=== PATIENT | female | born 1955 | race Caucasian/White ===

== ENCOUNTER 2019-11-22 15:17 | Inpatient (IN) | payer OTHER ==
[~2019-11-22] VITALS: Ht 168.9 cm; Wt 73.5 kg
[2019-11-22 15:24] VITALS: BP 132/76
[2019-11-22 17:16] LABS: HEMOGLOBIN 14.9 g/dl (12.0-16.0); MEAN CELL VOLUME 102.4 fl (81.0-99.0); MEAN CORPUSCULAR HGB 33.2 pg (27.0-31.0); MEAN CORPUSCULAR HGB CONC 32.4 g/dl (33.0-37.0); MEAN PLATELET VOLUME 9.3 fl (9.6-12.3); PLATELET COUNT AUTOMATED 265 10*3/uL (130-400); RED BLOOD COUNT 4.49 10*6/uL (4.10-5.10); RED CELL DISTRI WIDTH 13.7 % (0-14.5); WHITE BLOOD COUNT 16.6 10*3/uL (4.8-10.8)
[2019-11-22 17:21] VITALS: BP 131/84
[2019-11-22 17:36] LABS: BASOPHILS 1 % (0-1); PLATELET SUFFICIENCY NORMAL (NORMAL); TOTAL CELLS COUNTED 100 #CELLS
[2019-11-22 17:37] LABS: ACT PARTIAL THROMBO TIME 28.9 SECONDS (20.0-32.1); BURR CELLS FEW; INTERNATIONAL NORM RATIO 0.9 (2.0-3.5)
[2019-11-22 17:43] LABS: ALBUMIN 3.4 gm/dl (3.1-4.5); ALKALINE PHOSPHATASE 119 U/L (45-117); BUN 11 mg/dl (7-24); CHLORIDE 108 mmol/L (98-107); CREATININE 0.66 mg/dL (0.55-1.02); POTASSIUM 3.5 mmol/L (3.5-5.1); SGOT/AST 18 IU/L (3-35); SGPT/ALT 24 U/L (12-78); SODIUM 141 mmol/L (136-145)
[2019-11-22 17:55] VITALS: BP 136/76
[2019-11-22 17:55] LABS: BILIRUBIN NEGATIVE (NEGATIVE); BLOOD NEGATIVE (NEGATIVE); CLARITY SL CLOUDY (CLEAR); COLOR YELLOW (YELLOW); GLUCOSE NEGATIVE (NEGATIVE); KETONE 1+ (NEGATIVE); LEUKO ESTERASE 2+ (NEGATIVE); NITRITE NEGATIVE (NEGATIVE); PH 6.5 (5.0-9.0)
[2019-11-22 18:09] LABS: BACTERIA TRACE; CALCIUM OXALATE CRYSTALS TR; WBC 31-40 wbc/hpf (0-5)
[2019-11-22 21:20] VITALS: BP 129/80
--- NOTE | 2019-11-22 21:20 | NUR ---
A 64, admitted to , under the services of LUIS ANTONIO Diggs DO with a diagnosis of UTI CELLULITIS. Chief complaint is PAIN TO LOWER ABDOMEN, LUMP THAT IS RED AND SWOLLEN Patient arrived via stretcher from ER. Monitor applied, MONITOR PACK #[id number]. Initial assessment completed. Vital signs taken and recorded. LUIS ANTONIO DIGGS DO notified of admission to the unit. Orders received. See assessment for past medical history, medications and allergies. Patient and/or family oriented to unit. [address] visitation policy reviewed. Clothing/patient valuable form completed. INITAL ASSESSMENT COMPLETED. LUNGS CLEAR. BSX4 PRESENT. DENIES WEAKNESS. IV IN RAC. NO OPEN AREAS. RED, SWOLLEN, PAINFUL LUMP LOCATED ON PT'S LOWER ABDOMEN. PT IS LOW FALL RISK AND ALERT AND ORIENTED.ROOM ORIENTATION WAS PROVIDED. WELL THE PLAN OF CARE LISA MENG
[2019-11-22] MEDS ORDERED: ASPIRIN CHEWABL81 MG PO (23:28)
[2019-11-23] VITALS (9 sets, daily range): BP systolic 105–141; BP diastolic 54–94
--- NOTE | 2019-11-23 03:51 | NUR ---
24 HR chart check completed.
--- NOTE | 2019-11-23 07:27 | NUR ---
JOHN POZO [id number] Please refer to the physician's history and physical for past medical history, comorbid conditions, and allergies. Diagnosis: UTI CELLULITIS Alo Score: 22,LOW OR NO RISK WOUND DESCRIPTIONS: Wound Number: 1 Location of the wound: SUPRAPUBIC Thickness: Partial Size: 0.3CM X 0.3CM X <0.1CM Tunneling: NONE Undermining: NONE Sinus Tract: NONE Presence of Exudate: NONE Amount: None Color: Black Odor: None Periwound Skin Appearance: Erythema 24.0CM X 8.0CM X <0.1CM FIRMNESS 4.5CM X 8.0CM X <0.1CM Wound edges: CLOSED Pain (associated with wound): TENDER TO TOUCH PATIENT STATES THE PAIN HAS DECREASED SINCE SHE HASN'T BEEN WEARING PANTS How does patient state this happened? PT STATES THE REDNESS STARTED WEDNESDAY Surface the patient is resting on: Isoflex SKIN PREVENTION RECOMMENDATION: 1. Pressure redistribution support surface as appropriate 2. Elevate heels 3. Remove boots/TEDS every shift and reapply 4. Head of bed 30 degrees as tolerated 5. Assess nutrition and hydration 6. Manage moisture 7. Avoid the use of containment devices while in bed 8. Use absorptive products on surfaces limit layers of linens on bed 9. Turn and reposition every 1-2 hours in bed and every 1 hour in chair as tolerated 10. Weight shifts every 15 minutes while up in chair 11. Offloading with pillows or device to keep heels elevated off bed 12. Monitor skin at least every shift 13. Inspect under medical devices twice a day WOUND TREATMENT RECOMMENDATIONS: WARM COMPRESS QID TO SUPRAPUBIC AREA. CONSULT DR. SPRAGUE FOR POSSIBLE I&D.
[2019-11-23 07:42] LABS: BASO # 0.1 10*3/uL (0.0-0.1); BASO % 0.4 % (0.0-1.0); EOS # 0.1 10*3/uL (0.0-0.4); EOS % 0.4 % (1.0-4.0); HEMATOCRIT 42.5 % (37.0-47.0); HEMOGLOBIN 13.9 g/dl (12.0-16.0); LYMPH # 4.6 10*3/uL (1.3-4.4); LYMPH % 33.7 % (27.0-41.0); MEAN CELL VOLUME 102.4 fl (81.0-99.0); MEAN CORPUSCULAR HGB 33.5 pg (27.0-31.0); MEAN CORPUSCULAR HGB CONC 32.7 g/dl (33.0-37.0); MEAN PLATELET VOLUME 9.1 fl (9.6-12.3); MONO # 1.3 10*3/uL (0.1-1.0); MONO % 9.2 % (3.0-9.0); NEUT # 7.6 10*3/uL (2.3-7.9); PLATELET COUNT AUTOMATED 242 10*3/uL (130-400); RED BLOOD COUNT 4.15 10*6/uL (4.10-5.10); RED CELL DISTRI WIDTH 13.8 % (0-14.5); WHITE BLOOD COUNT 13.7 10*3/uL (4.8-10.8)
[2019-11-23 08:06] LABS: CHLORIDE 111 mmol/L (98-107); POTASSIUM 3.8 mmol/L (3.5-5.1); SODIUM 143 mmol/L (136-145)
[2019-11-23 08:13] LABS: ALBUMIN 2.8 gm/dl (3.1-4.5); ALKALINE PHOSPHATASE 98 U/L (45-117); BUN 9 mg/dl (7-24); CHOLESTEROL 112 mg/dL (<200); CREATININE 0.73 mg/dL (0.55-1.02); FREE T4 1.08 ng/dl (0.76-1.46); HDL CHOLESTEROL 33 mg/dl (40-60); LDL CHOLESTEROL 63 mg/dL (9-159); PHOSPHOROUS 3.1 mg/dL (2.5-4.9); SGOT/AST 15 IU/L (3-35); SGPT/ALT 23 U/L (12-78); TOTAL PROTEIN 5.2 gm/dL (6.4-8.2); TRIGLYCERIDES 80 mg/dl (<150); VLDL CHOLESTEROL 16 mg/dL (6-40)
--- NOTE | 2019-11-23 08:43 | NUR ---
DR. SPRAGUE AWARE OF CONSULT, NOTIFIED THAT PATIENT HAS ALREADY HAD BREAKFAST.
--- NOTE | 2019-11-23 09:00 | NUR ---
Rn Urology in to talk to patient. Patient states lives at home with alone. There are few steps in the home. Physician: [facility] Pharmacy: [facility] Home health services: none Patient's level of ADLs: INDEPENDENT Patient has working utilities: all working DME: none Follow-up physician's appointment after d/c: will be made by hospitalist nurse director upon discharge Does patient want to access PORTAL?: no Discharge plan discussed with patient she states she lives at home alone, she is independent in adls and ambulation, drives, works two emergency department rn jobs, she states she will return to home when medically stable and denies any home needs, case management will follow. CELSO CABRALES
--- NOTE | 2019-11-23 09:07 | NUR ---
Dr. Pepe notified of wound care recommendations.
--- NOTE | 2019-11-23 09:07 | NUR ---
Spoke with Dr. Corbett regarding patient's skin impairment. He stated he will see her later on today to see if patient requires intervention.
--- NOTE | 2019-11-23 11:58 | NUR ---
SENT TO SURGERY VIA BED
--- NOTE | 2019-11-23 12:40 | NUR ---
RETURN FROM SURGERY
--- NOTE | 2019-11-23 20:39 | NUR ---
24 HR chart check completed.
[2019-11-24] VITALS: BP 114/75
[2019-11-24 06:11] LABS: BASO # 0.1 10*3/uL (0.0-0.1); BASO % 0.7 % (0.0-1.0); EOS # 0.1 10*3/uL (0.0-0.4); EOS % 1.1 % (1.0-4.0); HEMATOCRIT 43.2 % (37.0-47.0); LYMPH # 4.4 10*3/uL (1.3-4.4); LYMPH % 41.2 % (27.0-41.0); MEAN CELL VOLUME 99.5 fl (81.0-99.0); MEAN CORPUSCULAR HGB 32.3 pg (27.0-31.0); MEAN CORPUSCULAR HGB CONC 32.4 g/dl (33.0-37.0); MEAN PLATELET VOLUME 9.7 fl (9.6-12.3); MONO # 1.5 10*3/uL (0.1-1.0); MONO % 13.8 % (3.0-9.0); NEUT # 4.6 10*3/uL (2.3-7.9); PLATELET COUNT AUTOMATED 268 10*3/uL (130-400); RED BLOOD COUNT 4.34 10*6/uL (4.10-5.10); RED CELL DISTRI WIDTH 13.5 % (0-14.5); WHITE BLOOD COUNT 10.6 10*3/uL (4.8-10.8)
--- NOTE | 2019-11-24 06:23 | NUR ---
CALLED [facility] AND NOTIFIED THEM OF PT'S VANC TROUGH OF 7.7. PER PHARMACIST, IT IS OKAY TO HANG THE 1gm DOSE AT THIS TIME AND SHE WILL LEAVE A NOTE FOR [facility] TO TAKE A LOOK AND SEE IF THEY WOULD LIKE TO ADJUST DOSE.
--- NOTE | 2019-11-24 07:10 | NUR ---
Shift chart check completed.
[2019-11-24 08:00] VITALS: BP 102/59; BP 110/60
--- NOTE | 2019-11-24 08:22 | NUR ---
Follow up with Mary Kate NUR in wound care clinic on 11/28/19 @ 3:00pm, call [phone] with any concerns
--- NOTE | 2019-11-24 09:00 | NUR ---
case management visits with patient she states she is a possibly discharge today after the surgeon visits, discussed with her VNA and she declines, stated she was able to change her dressing herself and if not she had family to help her.
--- NOTE | 2019-11-24 09:27 | NUR ---
Nutritional Support Services Note: Appetite is good for meals. Regular diet as ordered. Cellulitis noted. Ht.5'6 Wt.162#. IBW 130#, No other nutrition intervention needed at this time. Continued to encourage good intake of meals. Will follow if needed. Jyotsna Bryan Rdn Ld
[2019-11-24 12:00] VITALS: BP 110/69
[2019-11-24] MEDS ORDERED: CEPHALEXIN500 M1 PO (12:12)
--- NOTE | 2019-11-24 13:12 | NUR ---
Hep Lock discontinued. Site asymptomatic. Pressure applied. Sterile dressing applied. Discharge instructions reviewed with patient/family. Patient receptive and verbalizes understanding. Follow-up care arranged. Written instructions given to patient/family. ZENIA DODGE
--- NOTE | 2019-11-24 13:25 | NUR ---
PATIENT AMBULATED OUT WIOTH BELONGINGS.
== END 2019-11-24 13:21 | disposition home or self-care (01) | DRG 710 ==
LOC: ED 15:17 → 4E 19:59 → EDHOLD 19:59 → 4E 20:37
PROVIDERS: Internal Medicine; Physician Assistant; Student in an Organized Health Care Education/Training Program; ADMIT Internal Medicine
PROC: 0Y960ZZ Drainage of Left Inguinal Region, Open Approach (ICD-10-PCS; principal; 2019-11-23)
DX: A41.9 Sepsis, unspecified organism (principal); E66.3 Overweight; L03.314 Cellulitis of groin; R00.1 Bradycardia, unspecified; L02.214 Cutaneous abscess of groin; E87.8 Other disorders of electrolyte and fluid balance, not elsewhere classified; B96.89 Other specified bacterial agents as the cause of diseases classified elsewhere; R74.8 Abnormal levels of other serum enzymes; D75.89 Other specified diseases of blood and blood-forming organs; Z82.0 Family history of epilepsy and other diseases of the nervous system; Z79.82 Long term (current) use of aspirin; Z68.25 Body mass index [BMI] 25.0-25.9, adult

== ENCOUNTER 2021-11-13 10:17 | Emergency (ER) | payer OTHER, MEDICARE ==
[~2021-11-13 10:17] MED LIST: ASPIRIN CHEWABL81 MG PO; CEPHALEXIN500 M1 PO
[2021-11-13 11:03] LABS: BASO # 0.1 10*3/uL (0.0-0.1); BASO % 0.4 % (0.0-1.0); EOS # 0.1 10*3/uL (0.0-0.4); EOS % 0.4 % (1.0-4.0); HEMATOCRIT 42.4 % (37.0-47.0); LYMPH # 2.9 10*3/uL (1.3-4.4); LYMPH % 15.7 % (27.0-41.0); MEAN CELL VOLUME 95.5 fl (81.0-99.0); MEAN CORPUSCULAR HGB 31.5 pg (27.0-31.0); MEAN PLATELET VOLUME 8.9 fl (9.6-12.3); MONO # 0.8 10*3/uL (0.1-1.0); MONO % 4.4 % (3.0-9.0); NEUT # 14.3 10*3/uL (2.3-7.9); NEUT % 78.6 % (47.0-73.0); PLATELET COUNT AUTOMATED 462 10*3/uL (130-400); RED BLOOD COUNT 4.44 10*6/uL (4.10-5.10); RED CELL DISTRI WIDTH 14.3 % (0-14.5); WHITE BLOOD COUNT 18.2 10*3/uL (4.8-10.8)
[2021-11-13 11:20] LABS: ALBUMIN 2.4 gm/dl (3.1-4.5); ALKALINE PHOSPHATASE 199 U/L (45-117); BUN 9 mg/dl (7-24); CHLORIDE 110 mmol/L (98-107); CREATININE 0.48 mg/dL (0.55-1.02); SGOT/AST 17 IU/L (3-35); SGPT/ALT 34 U/L (12-78); SODIUM 140 mmol/L (136-145); TOTAL PROTEIN 5.4 gm/dL (6.4-8.2)
[2021-11-13] MEDS ORDERED: ZOFRAN4 MG PO (12:41)
[2021-11-13] MEDS ORDERED: LEVOFLOXACIN750 M2 PO (12:41)
== END 2021-11-13 13:19 | disposition home or self-care (01) ==
LOC: ED 10:17
PROVIDERS: Student in an Organized Health Care Education/Training Program
DX: J18.9 Pneumonia, unspecified organism (principal); Z20.822 Contact with and (suspected) exposure to COVID-19; Z79.82 Long term (current) use of aspirin

== ENCOUNTER 2022-12-15 07:30 | Emergency (ER) | payer OTHER, MEDICARE ==
[~2022-12-15] VITALS: Ht 167.6 cm; Wt 59.0 kg
[~2022-12-15 07:30] MED LIST changes: +LEVOFLOXACIN750 M2 PO; +ZOFRAN4 MG PO
[2022-12-15 08:55] LABS: HEMATOCRIT 46.1 % (37.0-47.0); MEAN CORPUSCULAR HGB 31.5 pg (27.0-31.0); MEAN CORPUSCULAR HGB CONC 32.8 g/dl (33.0-37.0); PLATELET COUNT AUTOMATED 312 10*3/uL (130-400); RED CELL DISTRI WIDTH 13.9 % (0-14.5); WHITE BLOOD COUNT 29.6 10*3/uL (4.8-10.8)
[2022-12-15 08:56] LABS: MANUAL DIFF REFLEX YES
[2022-12-15 09:07] LABS: ACT PARTIAL THROMBO TIME 30.6 SECONDS (20.0-32.1)
[2022-12-15 09:14] LABS: ALKALINE PHOSPHATASE 132 U/L (46-116); BUN 11 mg/dl (9-23); CHLORIDE 101 mmol/L (98-107); POTASSIUM 3.9 mmol/L (3.4-5.1); SGPT/ALT 25 U/L (10-49)
[2022-12-15 09:19] LABS: TOTAL CELLS COUNTED 100 #CELLS
[2022-12-15 09:20] LABS: PLATELET SUFFICIENCY NORMAL (NORMAL); POLYCHROMASIA SLIGHT; TARGET CELLS FEW
[2022-12-15 10:53] LABS: BILIRUBIN Negative (Negative); BLOOD Negative (Negative); CLARITY Clear (Clear); COLOR Yellow (Yellow); GLUCOSE Negative (Negative); KETONE Negative (Negative); LEUKO ESTERASE Trace (Negative); NITRITE Negative (Negative); PH 6.5 (4.5-8.0); SPECIFIC GRAVITY 1.015 (1.001-1.030)
[2022-12-15 11:17] LABS: MUCOUS 1+
== END 2022-12-15 13:09 | disposition short-term general hospital (02) ==
LOC: ED 07:30
PROVIDERS: Emergency Medicine
DX: S72.002A Fracture of unspecified part of neck of left femur, initial encounter for closed fracture (principal); Z20.822 Contact with and (suspected) exposure to COVID-19; Z79.899 Other long term (current) drug therapy; Z90.710 Acquired absence of both cervix and uterus; W19.XXXA Unspecified fall, initial encounter; Y93.89 Activity, other specified; Y92.009 Unspecified place in unspecified non-institutional (private) residence as the place of occurrence of the external cause; Y99.8 Other external cause status

== ENCOUNTER 2023-12-30 20:35 | Inpatient (IN) | payer MEDICARE ==
[2023-12-30] VITALS (12 sets, daily range): BP systolic 60–85; BP diastolic 31–47
[~2023-12-30] VITALS: Ht 167.6 cm; Wt 66.8 kg
[~2023-12-30 20:35] MED LIST changes: +VANCO 1.251.25 GM/25 IV
[2023-12-30] MEDS ORDERED: SODIUM CHLORIDE 0.9% 1,000 ML IV SCH (20:55)
[2023-12-30] MEDS ORDERED: SODIUM CHLORIDE 0.9% 2,000 ML IV ONE (20:59)
[2023-12-30] MEDS ORDERED: NOREPINEPHRINE BITARTRATE/D5W 250 ML IV SCH (21:55)
[2023-12-30 22:17] LABS: HEMATOCRIT 40.4 % (37.0-47.0); MEAN CELL VOLUME 101.3 fl (81.0-99.0); MEAN CORPUSCULAR HGB 30.3 pg (27.0-31.0); MEAN PLATELET VOLUME 9.8 fl (9.6-12.3); NUCLEATED RED BLOOD CELL 0.1 10*3/uL (0.0-0.0); NUCLEATED RED BLOOD CELL 0.2 % (0.0-0.0); PLATELET COUNT AUTOMATED 72 10*3/uL (130-400); RED BLOOD COUNT 3.99 10*6/uL (4.10-5.10); RED CELL DISTRI WIDTH 16.7 % (0-14.5); WHITE BLOOD COUNT 30.6 10*3/uL (4.8-10.8)
[2023-12-30 22:34] LABS: MANUAL DIFF REFLEX YES
[2023-12-30 22:36] LABS: PLATELET SUFFICIENCY LOW (NORMAL); TOTAL CELLS COUNTED 100 #CELLS
[2023-12-30 22:37] LABS: BURR CELLS MODERATE; OVALOCYTES FEW
[2023-12-30 22:45] LABS: ALKALINE PHOSPHATASE 86 U/L (46-116); BUN 15 mg/dl (9-23); CHLORIDE 118 mmol/L (98-107); LIPASE 42 U/L (12-53); POTASSIUM 2.5 mmol/L (3.4-5.1); SGPT/ALT 15 U/L (5-49)
[2023-12-30] MEDS ORDERED: Piperacillin Sodium/Tazobact 50 ML IV ONE (22:45)
[2023-12-30] MEDS ORDERED: Vancomycin Hydrochloride 250 ML IV ONE (22:45)
[2023-12-30] MEDS ORDERED: MAGNESIUM SULFATE 100 ML IV ONE (23:30)
[2023-12-30 23:34] LABS: ACT PARTIAL THROMBO TIME 40.4 SECONDS (20.0-32.1)
[2023-12-30] MEDS ORDERED: VASOPRESSIN 100 ML IV SCH (23:55)
[2023-12-31] VITALS (84 sets, daily range): BP systolic 67–184; BP diastolic 15–152
[2023-12-31] MEDS ORDERED: POTASSIUM CHLORIDE IN WATER 100 ML IV SCH
[2023-12-31 00:34] LABS: BILIRUBIN Negative (Negative); BLOOD 3+ (Negative); CLARITY Cloudy (Clear); COLOR Dark Yellow (Yellow); GLUCOSE Trace (Negative); KETONE Negative (Negative); LEUKO ESTERASE Negative (Negative); NITRITE Negative (Negative); PH 5.5 (4.5-8.0); UROBILINOGEN 0.2 E.U./dl (0.0-1.0)
[2023-12-31 00:49] LABS: COARSE GRANULAR CAST 21-30; EPITHELIAL CELLS 31-40
[2023-12-31 00:50] LABS: BACTERIA 1+; RBC 21-30 rbc/hpf (0-2)
[2023-12-31] MEDS ORDERED: MORPHINE Sulfate 2 MG/ML SYR IV PRN (01:50)
[2023-12-31] MEDS ORDERED: BISACODYL 5 MG TAB PO PRN (01:50)
[2023-12-31] MEDS ORDERED: Magnesium Hydroxide 30 ML UDC PO PRN (01:50)
[2023-12-31] MEDS ORDERED: ACETAMINOPHEN 325 MG TAB PO PRN (01:50)
[2023-12-31] MEDS ORDERED: Ondansetron Hydrochloride 4 MG/2 ML VIAL IV PRN (01:50)
[2023-12-31] MEDS ORDERED: Acetaminophen/Hydrocodone 5 MG/325 MG TABLET PO PRN (01:50)
[2023-12-31] MEDS ORDERED: TEMAZEPAM 15 MG CAP PO PRN (01:50)
[2023-12-31] MEDS ORDERED: ACETAMINOPHEN 650 MG SUPP R PRN (01:50)
[2023-12-31 02:32] LABS: ABG BASE EXCESS -15.1 mmol/L (-2.0-2.0); ARTERIAL BLOOD GAS PH 7.248 (7.35-7.45)
[2023-12-31] MEDS ORDERED: HEPARIN SODIUM 250 ML IV SCH (02:55)
[2023-12-31] MEDS ORDERED: CALCIUM (TUMS) 500MG PO PRN (03:00)
[2023-12-31] MEDS ORDERED: LEVOFLOXACIN 150 ML IV SCH (03:00)
[2023-12-31] MEDS ORDERED: SODIUM CHLORIDE 0.9% 1,000 ML IV ONE (03:05)
[2023-12-31] MEDS ORDERED: ASPIRIN 325 MG TAB PO ONE (04:55)
[2023-12-31 05:47] LABS: TOTAL PROTEIN 4.6 gm/dL (6.0-8.0)
[2023-12-31 05:53] LABS: POTASSIUM 4.1 mmol/L (3.4-5.1)
[2023-12-31 05:59] LABS: HEMATOCRIT 48.6 % (37.0-47.0); MEAN CORPUSCULAR HGB 30.6 pg (27.0-31.0); MEAN CORPUSCULAR HGB CONC 31.7 g/dl (33.0-37.0); MEAN PLATELET VOLUME 9.7 fl (9.6-12.3); NUCLEATED RED BLOOD CELL 0.1 % (0.0-0.0); PLATELET COUNT AUTOMATED 81 10*3/uL (130-400); RED BLOOD COUNT 5.03 10*6/uL (4.10-5.10)
[2023-12-31] MEDS ORDERED: Piperacillin Sodium/Tazobact 4.5 GM in SODIUM CHLORIDE 0.9% 100 ML IV SCH (06:00)
[2023-12-31 06:47] LABS: WHITE BLOOD COUNT 48.5 10*3/uL (4.8-10.8)
[2023-12-31 06:48] LABS: MANUAL DIFF REFLEX YES; MEAN CELL VOLUME 96.6 fl (81.0-99.0)
[2023-12-31 07:17] LABS: TOTAL CELLS COUNTED 100 #CELLS
[2023-12-31 07:18] LABS: BURR CELLS FEW; ROULEAUX SLIGHT
[2023-12-31 07:19] LABS: PLATELET SUFFICIENCY LOW (NORMAL)
[2023-12-31] MEDS ORDERED: HEPARIN SODIUM 5,000 UNIT/ML VIAL SC SCH (10:00)
[2023-12-31] MEDS ORDERED: ATORVASTATIN CALCIUM 40 MG TABLET PO SCH (10:00)
[2023-12-31] MEDS ORDERED: TAZOBACT IV ONE (10:12)
[2023-12-31] MEDS ORDERED: SODIUM CHLORIDE 0.9% 100 ML BAG IV ONE (10:12)
[2023-12-31] MEDS ORDERED: PIPERACILLIN SODIUM IV ONE (10:12)
[2023-12-31] MEDS ORDERED: Menthol/Zinc Oxide 4 GM THIN T PRN (11:00)
[2023-12-31] MEDS ORDERED: Hydrocortisone Sodium Succin 100 MG IV SCH (12:00)
[2023-12-31] MEDS ORDERED: Hydrocortisone Sodium Succin 100 MG/2 ML VIAL IV SCH (12:00)
[2023-12-31] MEDS ORDERED: Piperacillin Sodium/Tazobact 2.25 GM in SODIUM CHLORIDE 0.9% 50 ML IV SCH (12:00)
[2023-12-31] MEDS ORDERED: Menthol/Zinc Oxide 4 GM THIN T SCH (18:00)
[2023-12-31] MEDS ORDERED: Lactated Ringer's Solution 1,000 ML IV SCH (22:10)
[2024-01-01] VITALS (95 sets, daily range): BP systolic 79–132; BP diastolic 35–90
[2024-01-01] MEDS ORDERED: VANCOMYCIN/WATER FOR INJ (PEG) 150 ML IV SCH (06:00)
[2024-01-01 06:09] LABS: HEMATOCRIT 41.8 % (37.0-47.0); MEAN CORPUSCULAR HGB 30.8 pg (27.0-31.0); MEAN CORPUSCULAR HGB CONC 33.5 g/dl (33.0-37.0); MEAN PLATELET VOLUME 12.1 fl (9.6-12.3); NUCLEATED RED BLOOD CELL 0.1 % (0.0-0.0); NUCLEATED RED BLOOD CELL 0.1 10*3/uL (0.0-0.0); RED BLOOD COUNT 4.55 10*6/uL (4.10-5.10); RED CELL DISTRI WIDTH 16.8 % (0-14.5)
[2024-01-01 06:26] LABS: MEAN CELL VOLUME 91.9 fl (81.0-99.0)
[2024-01-01 06:42] LABS: MANUAL DIFF REFLEX YES
[2024-01-01 06:44] LABS: TOTAL CELLS COUNTED 100 #CELLS
[2024-01-01 06:45] LABS: BURR CELLS MANY
[2024-01-01 06:46] LABS: TOXIC GRANULATION SLIGHT; VACUOLATION OF NEUTROPHILS SLIGHT
[2024-01-01 06:47] LABS: PLATELET SUFFICIENCY LOW (NORMAL)
[2024-01-01 06:51] LABS: PLATELET COUNT AUTOMATED 26 10*3/uL (130-400); WHITE BLOOD COUNT 66.8 10*3/uL (4.8-10.8)
[2024-01-01 06:52] LABS: POTASSIUM 4.8 mmol/L (3.4-5.1); TOTAL PROTEIN 4.1 gm/dL (6.0-8.0)
[2024-01-01 07:34] LABS: MEAN CELL VOLUME 92.5 fl (81.0-99.0); MEAN CORPUSCULAR HGB 30.8 pg (27.0-31.0); MEAN CORPUSCULAR HGB CONC 33.3 g/dl (33.0-37.0); NUCLEATED RED BLOOD CELL 0.1 % (0.0-0.0); NUCLEATED RED BLOOD CELL 0.1 10*3/uL (0.0-0.0); RED BLOOD COUNT 4.65 10*6/uL (4.10-5.10)
[2024-01-01 07:40] LABS: MANUAL DIFF REFLEX YES; WHITE BLOOD COUNT 69.6 10*3/uL (4.8-10.8)
[2024-01-01 07:52] LABS: TOTAL PROTEIN 4.3 gm/dL (6.0-8.0)
[2024-01-01 08:18] LABS: PLATELET SUFFICIENCY LOW (NORMAL); TOTAL CELLS COUNTED 100 #CELLS
[2024-01-01 08:19] LABS: BURR CELLS MANY; PLATELET COUNT AUTOMATED 24 10*3/uL (130-400); POLYCHROMASIA SLIGHT; TOXIC GRANULATION SLIGHT; VACUOLATION OF NEUTROPHILS MODERATE
[2024-01-01] MEDS ORDERED: ASPIRIN ENTERIC COATED 81 MG TAB PO SCH (10:00)
[2024-01-01] MEDS ORDERED: SODIUM CHLORIDE 0.9% 1,000 ML IV SCH (10:35)
[2024-01-01] MEDS ORDERED: VANCOMYCIN HCL 125 MG CAPSULE PO SCH (12:00)
[2024-01-01] MEDS ORDERED: Piperacillin Sodium/Tazobact 2.25 GM in SODIUM CHLORIDE 0.9% 50 ML IV SCH (14:00)
[2024-01-01] MEDS ORDERED: Meropenem 1 GM in SODIUM CHLORIDE 0.9% 100 ML IV SCH (14:00)
[2024-01-01] MEDS ORDERED: Pantoprazole Sodium 40 MG VIAL IV SCH (16:35)
[2024-01-01] MEDS ORDERED: Amiodarone Hydrochloride 900 MG in DEXTROSE 5% 500 ML IV SCH (17:20)
[2024-01-01] MEDS ORDERED: Amiodarone Hydrochloride 150 MG in DEXTROSE 5% 100 ML IV ONE (17:20)
[2024-01-01] MEDS ORDERED: Doxycycline Hyclate 100 MG in SODIUM CHLORIDE 0.9% 250 ML IV SCH (22:00)
[2024-01-02] VITALS (49 sets, daily range): BP systolic 82–126; BP diastolic 37–91
[2024-01-02] MEDS ORDERED: LEVOFLOXACIN 150 ML IV SCH (03:00)
[2024-01-02 05:42] LABS: POTASSIUM 4.2 mmol/L (3.4-5.1); TOTAL PROTEIN 3.9 gm/dL (6.0-8.0)
[2024-01-02 06:22] LABS: HEMATOCRIT 39.5 % (37.0-47.0); MEAN CELL VOLUME 91.9 fl (81.0-99.0); MEAN CORPUSCULAR HGB 30.2 pg (27.0-31.0); MEAN CORPUSCULAR HGB CONC 32.9 g/dl (33.0-37.0); NUCLEATED RED BLOOD CELL 0.3 10*3/uL (0.0-0.0); NUCLEATED RED BLOOD CELL 0.5 % (0.0-0.0); RED CELL DISTRI WIDTH 16.7 % (0-14.5)
[2024-01-02 06:43] LABS: MANUAL DIFF REFLEX YES; PLATELET COUNT AUTOMATED 10 10*3/uL (130-400); WHITE BLOOD COUNT 74.5 10*3/uL (4.8-10.8)
[2024-01-02 06:55] LABS: TOTAL CELLS COUNTED 100 #CELLS
[2024-01-02 06:56] LABS: PLATELET SUFFICIENCY LOW (NORMAL); TOXIC GRANULATION SLIGHT; VACUOLATION OF NEUTROPHILS MODERATE
[2024-01-02 06:57] LABS: ACANTHOCYTES FEW; BURR CELLS MANY; SCHISTOCYTES FEW
[2024-01-02] MEDS ORDERED: Albuterol Sulf/Ipratropium 3 ML VIAL NEB PRN (11:15)
[2024-01-02] MEDS ORDERED: Amiodarone Hydrochloride 200 MG TAB PO SCH (13:00)
[2024-01-02] MEDS ORDERED: FUROSEMIDE 40 MG/4 ML VIAL IV ONE (13:00)
[2024-01-02] MEDS ORDERED: FUROSEMIDE 40 MG/4 ML VIAL ONE (13:14)
[2024-01-02 14:53] LABS: HEMATOCRIT 39.5 % (37.0-47.0); MEAN CORPUSCULAR HGB 30.4 pg (27.0-31.0); MEAN CORPUSCULAR HGB CONC 33.4 g/dl (33.0-37.0); NUCLEATED RED BLOOD CELL 0.5 10*3/uL (0.0-0.0); NUCLEATED RED BLOOD CELL 0.6 % (0.0-0.0); RED BLOOD COUNT 4.34 10*6/uL (4.10-5.10)
[2024-01-02 14:56] LABS: MANUAL DIFF REFLEX YES; PLATELET COUNT AUTOMATED 9 10*3/uL (130-400)
[2024-01-02] MEDS ORDERED: SODIUM CHLORIDE 0.9% 250 ML IV ONE (15:20)
[2024-01-02 15:21] LABS: PLATELET SUFFICIENCY LOW (NORMAL); TOTAL CELLS COUNTED 100 #CELLS
[2024-01-02 15:22] LABS: BURR CELLS MODERATE; TOXIC GRANULATION SLIGHT
[2024-01-02 15:23] LABS: OVALOCYTES FEW
[2024-01-02 16:21] LABS: ABG BASE EXCESS -13.1 mmol/L (-2.0-2.0); ARTERIAL BLOOD GAS PH 7.286 (7.35-7.45)
[2024-01-02] MEDS ORDERED: SODIUM BICARBONATE 50 MEQ/50 ML VIAL IV ONE (17:05)
[2024-01-02] MEDS ORDERED: SODIUM BICARBONATE 150 MEQ in DEXTROSE 5% 1,000 ML IV SCH (18:00)
[2024-01-02] MEDS ORDERED: Amiodarone Hydrochloride 900 MG in DEXTROSE 5% 500 ML IV SCH (18:45)
[2024-01-12] MEDS ORDERED: Amiodarone Hydrochloride 200 MG TAB PO SCH (10:00)
== END 2024-01-02 18:57 | disposition short-term general hospital (02) | DRG 871 ==
LOC: ED 20:35 → ICCU 12-31 01:38 → EDHOLD 12-31 01:38 → ICCU 12-31 02:16
PROVIDERS: Internal Medicine; Internal Medicine Infectious Disease; Student in an Organized Health Care Education/Training Program; ADMIT Student in an Organized Health Care Education/Training Program; ATTEND Student in an Organized Health Care Education/Training Program
PROC: 30233R1 Transfusion of Nonautologous Platelets into Peripheral Vein, Percutaneous Approach (ICD-10-PCS; principal; 2024-01-02)
DX: A41.9 Sepsis, unspecified organism (principal); E43 Unspecified severe protein-calorie malnutrition; I21.4 Non-ST elevation (NSTEMI) myocardial infarction; J18.9 Pneumonia, unspecified organism; R65.21 Severe sepsis with septic shock; N17.0 Acute kidney failure with tubular necrosis; N39.0 Urinary tract infection, site not specified; M86.8X8 Other osteomyelitis, other site; Z90.710 Acquired absence of both cervix and uterus; E83.42 Hypomagnesemia; E87.6 Hypokalemia; R73.9 Hyperglycemia, unspecified; Z87.81 Personal history of (healed) traumatic fracture; E83.51 Hypocalcemia; M85.88 Other specified disorders of bone density and structure, other site; Z68.23 Body mass index [BMI] 23.0-23.9, adult